=== PATIENT | male | born 1945 | race Caucasian/White ===

== ENCOUNTER 2017-04-02 15:30 | Emergency (ER) | payer MEDICARE ==
[2017-04-02] MEDS ORDERED: DIPH,PERTUS(ACELL)TETVAC-LF 0.5 ML VIAL IM ONE (15:38)
--- NOTE | 2017-04-02 15:49 | ED ---
Skin/Abscess/FB HPI - General Chief complaint: Skin/Abscess/Foreign Body Stated complaint: rt hand middle finger crushed Time Seen by Provider: 04/02/17 15:38 Source: patient, RN notes reviewed Mode of arrival: ambulatory Limitations: no limitations - History of Present Illness Initial comments: Patient is a pleasant 71-year-old male with chief complaint of a right middle finger crushing injury where she has a laceration over the distal tip of it. Patient states that he does have full range of motion of the finger. Patient states his tetanus is not up-to-date. He reports that he is right-handed. He states that he cut it on a piece of farm equipment.Patient denies any recent fever, chills, shortness of breath, chest pain, back pain, abdominal pain, nausea vomiting, numbness or tingling, dysuria or hematuria, constipation or diarrhea, headaches or visual changes, or any other current symptoms - Related Data Home Medications Medication Instructions Recorded Confirmed Fenofibrate 1 tab PO DAILY 04/02/17 04/02/17 Hydrochlorothiazide 1 tab PO DAILY 04/02/17 04/02/17 Lisinopril [Prinivil] 1 tab PO DAILY 04/02/17 04/02/17 Niacin [Niacin ER] 1 tab PO DAILY 04/02/17 04/02/17 Rosuvastatin [Crestor] 1 tab PO DAILY 04/02/17 04/02/17 Tamsulosin HCl [Flomax] 0.4 mg PO DAILY 04/02/17 04/02/17 glyBURIDE [Diabeta] 1 tab PO DAILY 04/02/17 04/02/17 metFORMIN HCL [Glucophage] 1 tab PO DAILY 04/02/17 04/02/17 Previous Rx's Medication Instructions Recorded Cephalexin [Keflex] 500 mg PO Q8HR #21 cap 04/02/17 HYDROcodone/APAP 10-325MG [Birdsnest 1 tab PO Q6H PRN #15 tab 04/02/17 10-325] Allergies Allergy/AdvReac Type Severity Reaction Status Date / Time No Known Allergies Allergy Verified 04/02/17 15:34 Review of Systems ROS Statement: Those systems with pertinent positive or pertinent negative responses have been documented in the HPI. ROS Other: All systems not noted in ROS Statement are negative. Past Medical History Past Medical History: Diabetes Mellitus, Hyperlipidemia, Hypertension, Prostate Disorder History of Any Multi-Drug Resistant Organisms: None Reported Past Surgical History: Back Surgery Past Psychological History: No Psychological Hx Reported Smoking Status: Never smoker Past Alcohol Use History: None Reported Past Drug Use History: None Reported General Exam - General Exam Comments Initial Comments: Well-appearing 71-year-old male. no Distress. Limitations: no limitations General appearance: alert, in no apparent distress Head exam: Present: atraumatic, normocephalic, normal inspection Eye exam: Present: normal appearance, PERRL, EOMI. Absent: scleral icterus, conjunctival injection, periorbital swelling ENT exam: Present: normal exam, mucous membranes moist Neck exam: Present: normal inspection. Absent: tenderness, meningismus, lymphadenopathy Respiratory exam: Present: normal lung sounds bilaterally. Absent: respiratory distress, wheezes, rales, rhonchi, stridor Cardiovascular Exam: Present: regular rate, normal rhythm, normal heart sounds. Absent: systolic murmur, diastolic murmur, rubs, gallop, clicks GI/Abdominal exam: Present: soft, normal bowel sounds. Absent: distended, tenderness, guarding, rebound, rigid Extremities exam: Present: normal inspection, full ROM, normal capillary refill. Absent: tenderness, pedal edema, joint swelling, calf tenderness Right Upper Arm exam: Present: normal inspection, full ROM Elbow exam: Present: normal inspection, full ROM Forearm Wrist exam: Present: normal inspection, full ROM Hand Wrist exam: Present: full ROM, laceration. Absent: normal inspection Hand L/R Back: 1 - 2 cm laceration Neuro motor exam: Present: wrist extension intact, thumb opposition intact, thumb IP flexion intact, thumb adduction intact Vascular: Present: normal capillary refill Back exam: Present: normal inspection Neurological exam: Present: alert, oriented X3, CN II-XII intact Psychiatric exam: Present: normal affect, normal mood Skin exam: Present: warm, dry, intact, normal color. Absent: rash Course Vital Signs 04/02/17 15:35 Temperature 98.4 F Pulse Rate 89 Respiratory 20 Rate Blood Pressure 152/90 O2 Sat by Pulse 98 Oximetry Procedures - Laceration Laceration #1 Site: hand (right middle finger ) Size (cm): 2 Description: irregular Depth: simple, single layer Anesthetic Used: benzocaine 0.25% Anesthesia Technique: nerve block Amount (mls): 6 Pre-repair: wound explored Type of Sutures: nylon Size of Sutures: 5-0 Number of Sutures: 6 Technique: simple, interrupted Patient Tolerated Procedure: well, no complications Laceration #2 Indication: laceration Site: hand (right middle finger on middle phalanx. ) Size (cm): 2 Description: irregular Depth: simple, single layer Anesthetic Used: benzocaine 0.25% Anesthesia Technique: nerve block Amount (mls): 4 Pre-repair: wound explored, irrigated extensively Type of Sutures: nylon Size of Sutures: 5-0 Number of Sutures: 6 Technique: simple, interrupted Patient Tolerated Procedure: well, no complications Medical Decision Making - Medical Decision Making This is a pleasant 71-year-old male with chief complaint of right middle finger laceration and crushing injury after he had it smashed on quitting. Patient reports that he was using a pull digger and slipped. Patient does have full range of motion of the finger. No tendon involvement. Patient's wound was well irrigated and closed with 12 sutures. Wound was well proximal needed. Patient given IM Kefzol and updated on tetanus vaccination. Patient will be treated with by mouth Keflex. Discussed that he needs to follow-up with orthopedic surgeon. Patient agrees to treatment plan will comply. Return parameters were discussed. - Radiology Data Radiology results: report reviewed Soft tissue injury to the third digit with fractures and fragmented distal spur at the DIP joint. Disposition Clinical Impression: Open fracture of distal phalanx of finger Disposition: HOME SELF-CARE Condition: Good Instructions: Finger Fracture (ED) Additional Instructions: Patient advised to remain in splint and to keep the finger straight. Follow-up with orthopedic hand surgeon within the next 2-3 days. Return to the emergency department if any alarming signs or symptoms occur. Prescriptions: Cephalexin [Keflex] 500 mg PO Q8HR #21 cap HYDROcodone/APAP 10-325MG [Birdsnest 10-325] 1 tab PO Q6H PRN #15 tab PRN Reason: Pain Referrals: Pj Mendoza DO [Doctor of Osteopathic Medicine] - 1-2 days Time of Disposition: 16:51
[2017-04-02] MEDS ORDERED: ceFAZolin 1,000 MG VIAL IM STA (15:51)
--- NOTE | 2017-04-02 16:14 | XR ---
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 Soft tissue injury centered along t he PIP joint of the third digit and suspected fragmented, fractured bulky dorsal spur. IMPRESSION: Soft tissue injury to the third digit with fractured and fragmented dorsal spur at the DIP joint.
[2017-04-02] MEDS ORDERED: TOPICAL SKIN ADHESIVE 1 EACH AMP TOPICAL ONE (16:48)
[2017-04-02 17:29] VITALS: BP 139/74; PULSE 77; RESP 18; TEMP 98.6
== END 2017-04-02 17:28 | disposition home or self-care (01) ==
LOC: EC 15:30
DX: S62.632B Displaced fracture of distal phalanx of right middle finger, initial encounter for open fracture (principal); S61.212A Laceration without foreign body of right middle finger without damage to nail, initial encounter; E11.9 Type 2 diabetes mellitus without complications; E78.5 Hyperlipidemia, unspecified; I10 Essential (primary) hypertension; N42.9 Disorder of prostate, unspecified; Z23 Encounter for immunization; Z79.84 Long term (current) use of oral hypoglycemic drugs; Z79.899 Other long term (current) drug therapy; X58.XXXA Exposure to other specified factors, initial encounter
CPT/HCPCS: 73140; 90715; 99283; 12002; 96372; 90471; J0690

== ENCOUNTER → 2022-10-16 | Outpatient (CLI) | payer MEDICARE ==
[2022-10-16 10:58] LABS: INR 1.1 (<1.2); Partial Thromboplastin Time 24.4 sec (22.0-30.0); Prothrombin Time 11.5 sec (9.0-12.0)
[2022-10-16 14:30] LABS: Albumin 4.4 g/dL (3.8-4.9); Albumin/Globulin Ratio 1.33 (1.60-3.17); Anion Gap 10.4 mmol/L (10.00-18.00); BUN/Creat Ratio 12.6 Ratio (12.00-20.00); Blood Urea Nitrogen 12.6 mg/dL (9.0-27.0); Carbon Dioxide 28.6 mmol/L (20.0-27.5); Globulin 3.3 g/dL (1.6-3.3); Non-African American GFR(CKD) 73.3 (60.0-200.0); Potassium 4.3 mmol/L (3.5-5.5); Total Bilirubin 0.3 mg/dL (0.30-1.20); Total Protein 7.7 g/dL (6.2-8.2)
[2022-10-16 14:45] LABS: Appearance,Urine Clear (Clear); Bilirubin,Urine Negative (Negative); Blood,Urine Negative (Negative); Color,Urine Yellow (Yellow); Ketones,Urine Negative (Negative); Nitrite,Urine Negative (Negative); Specific Gravity,Urine 1.021 (1.001-1.030); Urobilinogen,Urine 0.2 (0.2,1.0)
== END | disposition home or self-care (01) ==
LOC: LABWHC1 10:02
PROVIDERS: ATTEND Specialist
DX: M79.609 Pain in unspecified limb (principal)
CPT/HCPCS: 36415; 80053; 81003; 85610; 85730